=== PATIENT | female | born 1965 | race Caucasian/White ===

== ENCOUNTER 2018-05-13 14:56 | Observation (INO) | payer OTHER ==
[~2018-05-13] VITALS: Ht 160 cm; Wt 84.8 kg
[2018-05-13 16:32] LABS: BASOPHILS 0.7 % (0-2); EOSINOPHILS 2.4 % (0-7); HEMOGLOBIN 14.2 g/dL (12-16); IMMATURE GRANULOCYTES 0.3 % (0-5); LYMPHOCYTES 33.6 % (15-50); MCH 33.2 pg (26.0-34.0); MCHC 34.6 g/dL (31.0-37.0); MCV 95.8 fL (80.0-100.0); MEAN PLATELET VOLUME 13.4 fL (7.4-10.4); MONOCYTES 5.2 % (2-11); NEUTROPHILS 57.8 % (40-80); PLATELET COUNT 156 10x3/uL (130-400); RBC 4.28 10x6/uL (4.00-5.40); RDW 13.3 % (11.5-14.5); WBC 7.1 10x3/uL (4.8-10.8)
[2018-05-13 16:54] LABS: ALBUMIN 3.6 g/dL (3.4-5.0); ALKALINE PHOSPHATASE 94 U/L (46-116); ALT (SGPT) 23 U/L (10-68); BILIRUBIN - TOTAL 0.48 mg/dL (0.2-1.3); CALC OSMOLALITY 285 mosm/kg (275-300); CALCIUM 9.1 mg/dL (8.5-10.1); CARBON DIOXIDE 26.6 mmol/L (21.0-32.0); CHLORIDE - SERUM 104 mmol/L (98-107); CREATININE - SERUM 0.8 mg/dL (0.6-1.3); GLUCOSE 98 mg/dL (74-106); MAGNESIUM - SERUM 2.1 mg/dL (1.8-2.4); POTASSIUM - SERUM 4.2 mmol/L (3.5-5.1); PROTEIN - SERUM 6.9 g/dL (6.4-8.2); SODIUM 143 mmol/L (136-145); UREA NITROGEN 16 mg/dL (7-18); eGFR NON AFRICAN AMERICAN 79 mL/min (90-120)
[2018-05-13 18:16] VITALS: BP 133/70
[2018-05-13 21:39] VITALS: BP 112/59
[2018-05-14 01:10] VITALS: BP 118/68
[2018-05-14 04:56] LABS: BASOPHILS 0.8 % (0-2); EOSINOPHILS 3.7 % (0-7); HEMATOCRIT 38.9 % (36.0-48.0); HEMOGLOBIN 13.2 g/dL (12-16); IMMATURE GRANULOCYTES 0.2 % (0-5); LYMPHOCYTES 38.6 % (15-50); MCH 32.3 pg (26.0-34.0); MCHC 33.9 g/dL (31.0-37.0); MCV 95.1 fL (80.0-100.0); MONOCYTES 6.6 % (2-11); NEUTROPHILS 50.1 % (40-80); PLATELET COUNT 164 10x3/uL (130-400); RBC 4.09 10x6/uL (4.00-5.40); RDW 13.2 % (11.5-14.5); WBC 6.5 10x3/uL (4.8-10.8)
[2018-05-14 05:06] VITALS: BP 125/72
[2018-05-14 05:21] LABS: ALBUMIN 3.1 g/dL (3.4-5.0); ALKALINE PHOSPHATASE 87 U/L (46-116); ALT (SGPT) 21 U/L (10-68); CALC OSMOLALITY 283 mosm/kg (275-300); CALCIUM 8.6 mg/dL (8.5-10.1); CHLORIDE - SERUM 107 mmol/L (98-107); CREATININE - SERUM 0.8 mg/dL (0.6-1.3); GLUCOSE 106 mg/dL (74-106); POTASSIUM - SERUM 3.8 mmol/L (3.5-5.1); PROTEIN - SERUM 6.4 g/dL (6.4-8.2); SODIUM 142 mmol/L (136-145); UREA NITROGEN 16 mg/dL (7-18); eGFR NON AFRICAN AMERICAN 79 mL/min (90-120)
--- NOTE | 2018-05-14 08:52 | NUR ---
PT SEEN AND ASSESSED. NO COMPLAINTS OF HEADACHE AFTER COFFEE GIVEN AND DRANK. STATES DRINKS LOTS OF COFFEE DAILY. HAD RED DRAINING AREA NOTED TO BACK OF RIGHT THIGH-WILL ADDRESS WITH PHYSICAN. STATES HAS HAD FOR AWHILE AND IT BROKE OPEN. WHITE LIQUID DRAINING FROM SORE. REMAINS IN DROPLET ISOLATION FOR FLU. WILL CONTINUE TO MONITOR
[2018-05-14 10:04] VITALS: BP 103/51
[2018-05-14 13:54] VITALS: Ht 160 cm; Wt 84.8 kg
[2018-05-14 14:49] VITALS: BP 105/63
[2018-05-14] MEDS ORDERED: TAMIFLU75 MG PO (15:37)
--- NOTE | 2018-05-14 16:52 | NUR ---
DISCHARGE INSTRUCTIONS GIVEN. SEEMS TO UNDERSTAND INSTRUCTIONS. IV OUT TIP INACT. DENIES ANY FUTHER NEED BEFORE LEAVING. LEFT WITH HOSPITAL STAFF TO GO HOME WITH SPOUSE IN PERSONAL RIDE.
--- NOTE | 2018-05-18 09:43 | MORECARE ---
CASE MANAGEMENT DISCHARGE SUMMARY PATIENT: DAPHNE MAURICIO UNIT: [id number] ADM DATE: 05/13/18 AGE: 53 : 61 SEX: F ROOM/BED: D.2239 AUTHOR: JUDIE FINNEGAN PHYSICIAN: REFERRING PHYSICIAN: ELISA GARSIA DO DATE OF SERVICE: 05/18/18 Discharge Plan Patient Name: DAPHNE MAURICIO [facility] [facility] 1965 Planned Disposition: Anticipated Discharge Date: Discharge Date: 05/14/2018 Expected LOS: 0 Initial Reviewer: [email or web address] Initial Review Date: 05/18/2018 Generated: 05/18/18 10:43 am Patient Name: DAPHNE MAURICIO Page [id number] at 0943 All edits/amendments must be made on the electronic document DICTATION DATE: 05/18/1843 HOUSE FURNISHINGS SUPERVISOR: CARISA 05/18/18 0943 RPT#: [id number] DC DATE:05/14/18 STATUS: DIS IN [facility] [address] [facility] [place] [address] END OF REPORT
== END 2018-05-14 16:54 | disposition home or self-care (01) ==
LOC: D.SDCHOLD 14:56 → D.MS 14:56 → OBSVTIME 05-14 14:38 → D.MS 05-14 16:54
PROVIDERS: ADMIT Family Medicine
DX: J10.1 Influenza due to other identified influenza virus with other respiratory manifestations (principal); Z72.0 Tobacco use; R53.1 Weakness

== ENCOUNTER 2018-10-28 10:06 | Emergency (ER) | payer OTHER ==
[~2018-10-28] VITALS: Ht 160 cm; Wt 90.0 kg
[~2018-10-28 10:06] MED LIST: TAMIFLU75 MG PO
[2018-10-28 10:09] VITALS: Ht 160 cm; Wt 90.0 kg
[2018-10-28] MEDS ORDERED: ZANAFLEX4 MG PO (10:13)
[2018-10-28] MEDS ORDERED: HYDROCODON-ACE1 EAC7 PO (10:13)
[2018-10-28] MEDS ORDERED: LEVOXYL75 MCG PO (10:14)
[2018-10-28] MEDS ORDERED: MOBIC7.5 MG PO (10:14)
[2018-10-28] MEDS ORDERED: BACLOFEN20 M1 PO (10:43)
[2018-10-28] MEDS ORDERED: VOLTAREN75 MG PO (10:43)
[2018-10-28 11:35] VITALS: BP 148/85
== END 2018-10-28 11:36 | disposition home or self-care (01) ==
LOC: D.ER 10:06
DX: M54.2 Cervicalgia (principal); M54.5 Low back pain; G89.29 Other chronic pain

== ENCOUNTER 2018-10-29 09:10 | Inpatient (IN) | payer OTHER ==
[~2018-10-29] VITALS: Ht 160 cm; Wt 85.0 kg
[~2018-10-29 09:10] MED LIST changes: +BACLOFEN20 M1 PO; +HYDROCODON-ACE1 EAC7 PO; +LEVOXYL75 MCG PO; +MOBIC7.5 MG PO; +VOLTAREN75 MG PO; +ZANAFLEX4 MG PO
[2018-10-29 10:31] LABS: BASOPHILS 0.6 % (0-2); EOSINOPHILS 2.7 % (0-7); HEMATOCRIT 41.8 % (36.0-48.0); HEMOGLOBIN 14.6 g/dL (12-16); IMMATURE GRANULOCYTES 0.1 % (0-5); LYMPHOCYTES 24.8 % (15-50); MCH 33.6 pg (26.0-34.0); MCHC 34.9 g/dL (31.0-37.0); MCV 96.1 fL (80.0-100.0); MEAN PLATELET VOLUME 12.1 fL (7.4-10.4); MONOCYTES 6.8 % (2-11); RBC 4.35 10x6/uL (4.00-5.40); RDW 14.4 % (11.5-14.5); WBC 7.9 10x3/uL (4.8-10.8)
[2018-10-29 10:34] LABS: PLATELET COUNT 212 10x3/uL (130-400)
[2018-10-29 11:52] LABS: ALBUMIN 3.7 g/dL (3.4-5.0); ALKALINE PHOSPHATASE 106 U/L (46-116); ALT (SGPT) 63 U/L (10-68); BILIRUBIN - TOTAL 0.64 mg/dL (0.2-1.3); CALC OSMOLALITY 282 mosm/kg (275-300); CALCIUM 9.2 mg/dL (8.5-10.1); CARBON DIOXIDE 27.6 mmol/L (21.0-32.0); CHLORIDE - SERUM 107 mmol/L (98-107); CREATININE - SERUM 0.8 mg/dL (0.6-1.3); GLUCOSE 103 mg/dL (74-106); POTASSIUM - SERUM 4.4 mmol/L (3.5-5.1); PROTEIN - SERUM 7.5 g/dL (6.4-8.2); SODIUM 142 mmol/L (136-145); UREA NITROGEN 13 mg/dL (7-18); eGFR NON AFRICAN AMERICAN 79 mL/min (90-120)
[2018-10-29 13:51] VITALS: BP 162/92; BMI 35.6
--- NOTE | 2018-10-29 16:17 | NUR ---
C-COLLAR PLACED. PATIENT SAYS IT IS UNCOMFORTABLE. PAIN MED GIVEN. CL IN REACH. SON IN ROOM. WCTM
[2018-10-29 16:45] VITALS: BP 132/81
[2018-10-29 20:00] VITALS: BP 158/76
[2018-10-29 20:15] LABS: APPEARANCE CLEAR (CLEAR); BILIRUBIN NEGATIVE (NEGATIVE); COLOR YELLOW (YELLOW); GLUCOSE NEGATIVE (NEGATIVE); KETONE NEGATIVE (NEGATIVE); NITRITE NEGATIVE (NEGATIVE); PROTEIN NEGATIVE (NEGATIVE); SPECIFIC GRAVITY 1.015 (1.005-1.020); UROBILINOGEN NORMAL (NORMAL)
[2018-10-29 20:16] LABS: BACTERIA FEW /hpf (NONE SEEN); RED CELLS - URINE RARE /hpf (0-5); WHITE CELLS - URINE 0-5 /hpf (0-5)
[2018-10-30] VITALS: BP 123/69
[2018-10-30 04:00] VITALS: BP 128/72
[2018-10-30 06:18] LABS: BASOPHILS 0.7 % (0-2); EOSINOPHILS 2.8 % (0-7); HEMATOCRIT 37.3 % (36.0-48.0); HEMOGLOBIN 12.7 g/dL (12-16); IMMATURE GRANULOCYTES 0.2 % (0-5); MCH 33.1 pg (26.0-34.0); MCV 97.1 fL (80.0-100.0); MONOCYTES 5.5 % (2-11); NEUTROPHILS 60.8 % (40-80); PLATELET COUNT 191 10x3/uL (130-400); RBC 3.84 10x6/uL (4.00-5.40); RDW 14.8 % (11.5-14.5)
[2018-10-30 06:42] LABS: ALBUMIN 2.9 g/dL (3.4-5.0); ALKALINE PHOSPHATASE 124 U/L (46-116); ALT (SGPT) 323 U/L (10-68); BILIRUBIN - TOTAL 0.42 mg/dL (0.2-1.3); CALC OSMOLALITY 280 mosm/kg (275-300); CHLORIDE - SERUM 109 mmol/L (98-107); CREATININE - SERUM 0.7 mg/dL (0.6-1.3); GLUCOSE 102 mg/dL (74-106); MAGNESIUM - SERUM 2.2 mg/dL (1.8-2.4); PROTEIN - SERUM 6.3 g/dL (6.4-8.2); SODIUM 141 mmol/L (136-145); UREA NITROGEN 13 mg/dL (7-18); eGFR NON AFRICAN AMERICAN > 90 mL/min (90-120)
--- NOTE | 2018-10-30 07:35 | NUR ---
AWAKE AND ALERT. ORIENTED X 3. C/O NAUSEA AT THIS TIME. GIVEN 4MG ZOFRAN SLOW IVP FOR SAME. WILL MONITOR. LUNGS ARE CLEAR BILATERALLY, NO COUGH NOTED. SKIN IS INTACT WITHOUT REDNESS. IV TO RIGHT HAND IS PATENT WITHOUT REDNESS AT INSERTION SITE. DENIES NEEDS.
[2018-10-30 08:45] VITALS: BP 123/66
--- NOTE | 2018-10-30 09:10 | NUR ---
REQUESTED AND GIVEN 4MG MORPHINE SLOW IVP FOR C/O NECK PAIN LEVEL 10. WILL MONITOR.
[2018-10-30 10:16] VITALS: Ht 160 cm; Wt 85.0 kg
[2018-10-30 10:36] LABS: CHOL - HDL RATIO 5.8 ratio (2.3-4.1); LDL-HDL RATIO 3.7 ratio (1.5-3.5)
--- NOTE | 2018-10-30 12:28 | NUR ---
IV TO RIGHT HAND IS LEAKNING. RESITED TO LEFT FOREARM AFTER ONE ATTEMPT WITH 20 G. OLD IV D/C WITH CATHETER INTACT.
[2018-10-30 13:28] VITALS: BP 125/82
--- NOTE | 2018-10-30 14:07 | NUR ---
ATE ALL OF LUNCH. RESTING QUIETLY WITH EYES CLOSED. NO NEEDS NOTED.
--- NOTE | 2018-10-30 15:45 | NUR ---
REQUESTED AND GIVEN 4MG MORPHIEN SLOW IVP FOR C/O NECK PAIN LEVEL 10. WILL MONITOR.
[2018-10-30 16:34] VITALS: BP 142/76
--- NOTE | 2018-10-30 18:36 | NUR ---
ATE ALL OF SUPPER. DENIES NEEDS. NO CHANGES NOTED.
--- NOTE | 2018-10-30 19:15 | NUR ---
ANSWERED PATIENT CALL LIGHT. PT ALERT AND ORIENTED. LEFT FOREARM IV INFILTRATED. REMOVED WITH CATHETER INTACT. DRESSED APPROPRIATELY. ADMINISTERED NEW IV TO THE RIGHT WRIST. COMPLAINS OF PAIN AND REQUESTS MORPHINE WHEN AVAILABLE. PT REFUSES SCD'S. UP AD [facility] TO BATHROOM. REFUSES HOSPITAL GOWN WELL. NS INFUSING AT 125. WEARING C COLAR. ADJUSTED SEVERAL TIMES FOR PATIENT COMFORT. LUNGS CLEAR TO AUSCULTATION. BOWEL SOUNDS ACTIVE. DENIES FURTHER ISSUES AT THIS TIME. USES CALL LIGHT EFFECTIVELY. BED LOCKED AND LOWERED. ROOM CLOSE TO NURSES STATION FOR MONITORING. CPOC.
[2018-10-30 20:00] VITALS: BP 150/75
--- NOTE | 2018-10-30 22:45 | NUR ---
RECEIVED CALL FROM DR. VARELA ABOUT PATIENT AND PAIN CONTROL. RECEIVED NEW ORDERS FOR PAIN CONTROL. ALSO INQUIRED ABOUT SURGERY SCHEDULE. RECEIVED ORDERS FOR ACDF CONSENTS. SPOKE WITH SURGICAL GARMENT ASSEMBLER. ORDERS PLACED.
--- NOTE | 2018-10-30 23:30 | NUR ---
ADMINISTERED PATIENT RETAIL PARTS PRO ORDERED. INSTRUCTED PATIENT ON HOW TO USE RETAIL PARTS PRO MACHINE CORRECTLY. PROVIDED EDUCATION ABOUT MEDICATION. VERBALIZES UNDERSTANDING. DENIES FURTHER ISSUES AT THIS TIME. HAS CALL LIGHT IN REACH. CPOC.
[2018-10-31] VITALS (9 sets, daily range): BP systolic 121–158; BP diastolic 62–88
[2018-10-31 05:42] LABS: BASOPHILS 0.1 % (0-2); EOSINOPHILS 0 % (0-7); HEMOGLOBIN 13.3 g/dL (12-16); IMMATURE GRANULOCYTES 0.3 % (0-5); LYMPHOCYTES 13.9 % (15-50); MCHC 34.1 g/dL (31.0-37.0); MCV 96.8 fL (80.0-100.0); MEAN PLATELET VOLUME 12.4 fL (7.4-10.4); MONOCYTES 1.2 % (2-11); NEUTROPHILS 84.5 % (40-80); PLATELET COUNT 215 10x3/uL (130-400); RBC 4.03 10x6/uL (4.00-5.40); RDW 14.4 % (11.5-14.5)
[2018-10-31 05:44] LABS: WBC 9.4 10x3/uL (4.8-10.8)
[2018-10-31 05:57] LABS: ALBUMIN 3.2 g/dL (3.4-5.0); ALKALINE PHOSPHATASE 120 U/L (46-116); BILIRUBIN - TOTAL 0.34 mg/dL (0.2-1.3); CARBON DIOXIDE 23.1 mmol/L (21.0-32.0); CHLORIDE - SERUM 108 mmol/L (98-107); CREATININE - SERUM 0.7 mg/dL (0.6-1.3); POTASSIUM - SERUM 4.2 mmol/L (3.5-5.1); SODIUM 142 mmol/L (136-145); UREA NITROGEN 14 mg/dL (7-18); eGFR NON AFRICAN AMERICAN > 90 mL/min (90-120)
[2018-10-31 05:58] LABS: CALC OSMOLALITY 287 mosm/kg (275-300); GLUCOSE 165 mg/dL (74-106)
[2018-10-31 06:06] LABS: ALT (SGPT) 306 U/L (10-68)
--- NOTE | 2018-10-31 07:08 | NUR ---
PT IS RESTING IN BED WITH EYES OPEN. RESPIRATIONS ARE EVEN AND UNLABORED. PT REPORTS PAIN TO NECK/BACK. HOSE SPRAYER MORPHINE IS AVAILABLE. HOSE SPRAYER SETTINGS SET PER ORDER. SEE EMAR. PT DENIES PRESENCE OF NUMBNESS/TINGLING. PT EDUCATED ON NPO FOR PROCEDURE. PT VERBALIZES UNDERSTANDING. PT DENIES PRESENCE OF DIZZINESS UPON POSITION CHANGE. PIV TO RIGHT WRIST IS INFUSING WITHOUT DIFFICULTY. BED IS IN THE LOWEST POSITION. CALL LIGHT AND BEDSIDE TABLE ARE WITHIN REACH. SIDE RAILS X 2. WILL CONT TO MONITOR.
--- NOTE | 2018-10-31 15:23 | NUR ---
PT TRANSPORTED FROM ROOM FOR PROCEDURE
--- NOTE | 2018-10-31 16:45 | NUR ---
1600 SEDATION ASSESSMENT COMPLETED TO CLEAR OFF OF BOARD. PT STATUS IS UNKNOWN AT THIS TIME, PT IS OFF FLOOR FOR PROCEDURE. THERE IS NOT AN OPTION TO PUT PT NOT AVAILABLE.
--- NOTE | 2018-10-31 19:36 | NUR ---
PT ARRIVED TO FLOOR VIA STRETCHER. FROM PACU. PT AOX4. PT DRINKING WATER UPON ARRIVAL. ACTIVE BOWEL SOUNDS STATES SHE IS HUNGRY PASSES GAS. WANTS TO EAT SENT FAMILY FOR FOOD. ASSESSMENT DONE SEE FLOW SHEET VSS. NO SIGNS OF ACUTE DISTRESS NOTED.
[2018-11-01] VITALS (9 sets, daily range): BP systolic 107–168; BP diastolic 64–93
[2018-11-01 04:47] LABS: BASOPHILS 0 % (0-2); EOSINOPHILS 0 % (0-7); HEMATOCRIT 37.3 % (36.0-48.0); HEMOGLOBIN 12.7 g/dL (12-16); IMMATURE GRANULOCYTES 0.3 % (0-5); LYMPHOCYTES 8.1 % (15-50); MCH 32.9 pg (26.0-34.0); MCV 96.6 fL (80.0-100.0); MEAN PLATELET VOLUME 12.1 fL (7.4-10.4); MONOCYTES 3.6 % (2-11); PLATELET COUNT 210 10x3/uL (130-400); RBC 3.86 10x6/uL (4.00-5.40); RDW 14.5 % (11.5-14.5)
--- NOTE | 2018-11-01 05:00 | NUR ---
2100 MEDS GIVEN PER MAY. VSS. PT AOX4. ASKING FAMILY TO GET HER FOOD. 2199 DR VARELA NOTIFIED OF PT STATUS. ABX ALLERGY VERIFIED. OK TO GIVE GIVEN. 2300 REASSESSMENT DONE SEE FLOW SHEET VSS 0100 WATER PROVIDED. 0300 REASSESSEMTN DONE SEE FLOW SHEET. 0500 WATER PROVIDED. IO COLLECTED DAILY WEIGHT PROVIDED.
[2018-11-01 05:11] LABS: ALBUMIN 3.4 g/dL (3.4-5.0); ALKALINE PHOSPHATASE 100 U/L (46-116); BILIRUBIN - TOTAL 0.51 mg/dL (0.2-1.3); CALC OSMOLALITY 277 mosm/kg (275-300); CALCIUM 8.9 mg/dL (8.5-10.1); CARBON DIOXIDE 23.1 mmol/L (21.0-32.0); CHLORIDE - SERUM 104 mmol/L (98-107); CREATININE - SERUM 0.8 mg/dL (0.6-1.3); GLUCOSE 156 mg/dL (74-106); MAGNESIUM - SERUM 2.2 mg/dL (1.8-2.4); POTASSIUM - SERUM 3.7 mmol/L (3.5-5.1); PROTEIN - SERUM 7.1 g/dL (6.4-8.2); SODIUM 137 mmol/L (136-145); UREA NITROGEN 14 mg/dL (7-18); eGFR NON AFRICAN AMERICAN 79 mL/min (90-120)
[2018-11-01 05:20] LABS: ALT (SGPT) 205 U/L (10-68)
--- NOTE | 2018-11-01 07:00 | NUR ---
SHIFT ASSESSMENT COMPLETED. PT CARE ASSUMED MONITORS ON AND WORKING, VITALS STABLE. PT DENIES ANY COMPLAINT OF PAIN OR DISCOMFORT NOTED AT THIS TIME, RIGHT NECK DRESSING CDI. SEE FLOW SHEET FOR FURTHER DETAILS. WILL CONTINUE TO OBSERVE.
--- NOTE | 2018-11-01 09:00 | NUR ---
REC'D ORDERS FROM DR VARELA TO DISCHARGE PT HOME FROM HIS STANDPOINT, WAITING FOR ATTENDING TO ROUND, FAMILY AT BEDSIDE UPDATE PROVIDED. MONITORS ON AND WORKING, VITALS STABLE. CALL LIGHT WITHIN REACH, WILL CONTINUE TO OBSERVE.
--- NOTE | 2018-11-01 12:45 | NUR ---
IV D/C'D PT DISCHARGED HOME VIA PERSONAL CAR WITH FAMILY MEMBER, DISCHARGE TEACHING AND INSTRUCTIONS DISCUSSED WITH PT AND , PT AWARE OF FOLLOW UP APPTS, ALL BELONGINGS ARE WITH PT. NO SIGNS/SYMPTOMS OR COMPLAINTS OF ANY DISCOMFORT OR PAIN.
--- NOTE | 2018-11-01 18:37 | MORECARE ---
CASE MANAGEMENT DISCHARGE SUMMARY PATIENT: DAPHNE MAURICIO UNIT: [id number] ADM DATE: 10/30/18 AGE: 53 : 61 SEX: F ROOM/BED: D.[facility] AUTHOR: SIVAN,DOC PHYSICIAN: REFERRING PHYSICIAN: YESSENIA JOSUE MD DATE OF SERVICE: 11/01/18 Discharge Plan Patient Name: DAPHNE MAURICIO Facility: [facility]:[place] : 1965 Planned Disposition: Home Anticipated Discharge Date: Discharge Date: 11/01/2018 Expected LOS: Initial Reviewer: [email or web address] Initial Review Date: 11/01/2018 Generated: 11/01/18 7:37 pm Comments DCP- Discharge Planning Updated by [email or web address]: Karen Phillips on 11/01/18 5:[address] Patient Name: DAPHNE MAURICIO Admission Status: Urgent Accout number: [id number] Admission Date: 10-30-2018 : 1965 Admission Diagnosis: Attending: GENET Current LOS: 2 Anticipated DC Date: Planned Disposition: Home Primary Insurance: [facility] Discharge Planning Comments: CM met with patient at bedside after explaining CM role and obtaining verbal consent. Patient lives at home with her and plans to return there upon discharge. Patient feels this would be a safe discharge. CM discussed availability / needs of home health and medical equipment. Patient denies any discharge needs at this time. Patient states she will have her drive her home upon discharge. CM will continue to follow and assist as needed with discharge planning / needs. Director Acute: Karen Phillips DCPIA - Discharge Planning Initial Assessment Updated by [email or web address]: Karen Phillips on 11/01/18 6:34 pm * Is the patient Alert and Oriented? Yes * How many steps to enter\exit or inside your home? * PCP ISRAO * Pharmacy [facility] * Preadmission Environment Home with Family * ADLs Independent * Equipment None * List name and contact numbers for known caregivers / representatives who currently or will assist patient after discharge: JOSIE BURNS - [phone] * Verbal permission to speak to the caregivers and representatives has been obtained from the patient. Yes * Community resources currently utilized None * Additional services required to return to the preadmission environment? No * Can the patient safely return to the preadmission environment? Yes * Has this patient been hospitalized within the prior 30 days at any hospital? No External Providers External Provider: OTHER-OTHER Next Contact Date: Service Request Date: Service Type: Resolution: Reviewer: Comments: Patient Name: DAPHNE MAURICIO Page [phone] at 1837 All edits/amendments must be made on the electronic document DICTATION DATE: 11/01/181836 CLINICAL DOCUMENTATION DEVELOPER: CARISA 11/01/181836 RPT#: [id number] DC DATE:11/01/18 STATUS: DIS IN [facility] [address] [place] [address] END OF REPORT
[2018-11-02 04:07] LABS: HEPATITIS C ANTIBODY 0.1 S/CO RAT (0.0-0.9)
--- NOTE | 2018-11-04 13:38 | OP ---
PATIENT NAME: DAPHNE MAURICIO MEDICAL RECORD: [id number] :[birth year] LOCATION:[facility] ADMISSION DATE:10/30/18 SURGEON: KARLA CRUZ MD DATE OF OPERATION: 10/31/2018 DATE OF SERVICE: 10/31/2018 SURGEON: Karla Cruz MD PROCEDURE: Anterior cervical discectomy and fusion at C5-C6 and C6-C7 with separate anterior cervical plate and screws, PEEK interbody cages and bone stem cell allograft, removal of osteophytes, Zavation anterior cervical plate and hardware. DESCRIPTION AND TECHNIQUE: After induction of general endotracheal anesthesia, the patient was positioned supine on the operating table. The neck was prepped and draped in the usual sterile fashion. Fluoroscopic x-ray and freer localized the C5-C6 interspace. Following this, after infiltration of 1:100,000 epinephrine and 1% lidocaine, a transverse skin incision was carried out from the midline to the sternocleidomastoid muscle. The platysma was divided with sharp dissection and then using blunt and sharp dissection with Metzenbaum scissors, I proceeded in avascular plane, medial to the carotid sheath. The C5-C6 interspace was confirmed with fluoroscopic x-ray and a spinal needle. The longus colli muscles were elevated from bodies of C5, C6 and C7. Osteophytes were removed anteriorly with Adson rongeurs at C5-C6 and C6-C7. A self-retaining retractor was placed deep to the longus colli muscles. [place] distracting pins were placed by the C5, C6, and C7. Each disc space was incised under distraction. The disc material was removed with pituitary rongeurs and curettes. Under microscopic illumination, osteophytes were removed posteriorly with Midas-Brady drill under microscope at C5-C6 and C6-C7. The posterior longitudinal ligament was removed at C5-C6 and C6-C7. Next, a PEEK interbody cage was placed in the disc space under distraction prior to the placement of the cage. The cage was filled with bone stem cells. Next, a Zavation anterior cervical plate and screws was used to span the C5, C6 and C7 interspaces. Self-drilling screws were placed through the holes in the plate. Locking cams were tightened down over the screw heads. Good position of the hardware was confirmed with fluoroscopic x-ray. Meticulous hemostasis was maintained throughout the wound. Wound was irrigated with copious amounts of Ancef irrigant solution. The platysma and subdermal layer closed with interrupted 3-0 Vicryl suture. The skin was reapproximated with Steri-Strips and benzoin. A sterile dressing was applied to the wound. The patient was awakened in good condition, taken to recovery. All counts were reported as correct. Estimated blood loss was minimal. TRANSINT:[id number] Voice Confirmation ID: [id number] DOCUMENT ID: [id number] KARLA CRUZ MD at 1338 CC: [id number] DICTATION DATE: 11/03/1807 DIRECTOR BUSINESS MANAGEMENT: 11/03/18 0944 DIS IN 11/01/18 [id number] [place] [address]
== END 2018-11-01 13:00 | disposition home or self-care (01) | DRG 30 ==
LOC: D.MS 09:10 → D.SDCHOLD 09:10 → OBSVTIME 09:12 → D.MS 09:17 → D.CVICU 10-30 14:36 → D.MS 10-30 14:36 → D.CVICU 10-31 18:10
PROVIDERS: Family Medicine; Internal Medicine Nephrology; Neurological Surgery; ADMIT Family Medicine; ATTEND Family Medicine
PROC: 0RG20A0 Fusion of 2 or more Cervical Vertebral Joints with Interbody Fusion Device, Anterior Approach, Anterior Column, Open Approach (ICD-10-PCS; 2018-10-31)
PROC: 0RG20K0 Fusion of 2 or more Cervical Vertebral Joints with Nonautologous Tissue Substitute, Anterior Approach, Anterior Column, Open Approach (ICD-10-PCS; 2018-10-31)
PROC: 0RB30ZZ Excision of Cervical Vertebral Disc, Open Approach (ICD-10-PCS; principal; 2018-10-31 08:21)
DX: M54.12 Radiculopathy, cervical region (principal); M47.892 Other spondylosis, cervical region; I10 Essential (primary) hypertension; E03.9 Hypothyroidism, unspecified